=== PATIENT | female | born 2000 | race Caucasian/White ===

== ENCOUNTER 2023-03-22 11:12 | Emergency (ER) | payer BC ==
[2023-03-22 11:16] VITALS: BMI 25.8
[2023-03-22] MEDS ORDERED: ONDANSETRON 4 MG/2 ML VIAL IVPUSH ONE (12:15)
[2023-03-22] MEDS ORDERED: LOPERAMIDE HCL 2 MG CAPSULE PO ONE (12:15)
[2023-03-22] MEDS ORDERED: FAMOTIDINE 20 MG/50 ML IVPB 20 MG/50 ML MG IVPB ONE ×2 (12:15→12:21)
[2023-03-22] MEDS ORDERED: SODIUM CHLORIDE 1,000 ML IV STA (12:15)
[2023-03-22] MEDS ORDERED: ONDANSETRON 4 MG/2 ML VIAL ONE (12:21)
[2023-03-22] MEDS ORDERED: LOPERAMIDE HCL 2 MG CAPSULE ONE ×2 (12:26→12:40)
[2023-03-22 12:53] LABS: HEMATOCRIT 41.6 % (32.4-45.2); HEMOGLOBIN 14.3 GM/dL (10.7-15.3); MCH 32.9 pg (25.7-33.7); MCHC 34.3 g/dl (32.0-36.0); MEAN PLT VOLUME 9.2 fl (7.5-11.1); PLATELET COUNT 249 10^3/uL (134-434); RBC 4.34 M/mm3 (3.60-5.2); RDW 12.7 % (11.6-15.6); WHITE BLOOD COUNT 10.8 K/mm3 (4.0-10.0)
[2023-03-22 12:57] LABS: EPI CELLS 7 /uL (0-25.1); HYALINE CASTS 1 /uL (0-3.1); URINE APPEARANCE CLEAR; URINE BACTERIA 89 /uL (0-1359); URINE BILIRUBIN NEGATIVE (NEGATIVE); URINE COLOR DK YELLOW; URINE GLUCOSE (UA) NEGATIVE (NEGATIVE); URINE KETONE 3+ (NEGATIVE); URINE LEUK ESTERASE NEGATIVE (NEGATIVE); URINE NITRITE NEGATIVE (NEGATIVE); URINE PROTEIN 2+ (NEGATIVE); URINE RBC 44 /uL (0-23.9); URINE WBC 5 /uL (0-25.8)
[2023-03-22 12:58] LABS: HCG,QUALITATIVE URINE Negative
[2023-03-22 13:20] LABS: POTASSIUM 4.1 mmol/L (3.5-5.1)
[2023-03-22 13:22] LABS: BLOOD UREA NITROGEN 13.9 mg/dL (7-18); CALCIUM 8.7 mg/dL (8.5-10.1)
[2023-03-22] MEDS ORDERED: ACETAMINOPHEN 1000 MG/100 ML BAG IVPB ONE (13:22)
[2023-03-22 13:25] LABS: CREATININE 0.8 mg/dL (0.55-1.3)
[2023-03-22 13:27] LABS: BILIRUBIN,TOTAL 0.6 mg/dL (0.2-1); TOT PROT 7.5 g/dl (6.4-8.2)
[2023-03-22 13:52] LABS: ANISOCYTOSIS 0; HELMET CELLS 0; HOWELL-JOLLY BODIES 0; MACROCYTOSIS 0; OVALOCYTE 0; ROULEAU 0; SICKELED CELLS 0; TARGET CELLS 0; TEAR DROP CELLS 0; TOXIC GRANULATION 0
[2023-03-22] MEDS ORDERED: ACETAMINOPHEN 325 MG TABLET (FP) PO ONE (14:07)
[2023-03-22] MEDS ORDERED: ACETAMINOPHEN 325 MG TABLET (FP) ONE (14:26)
[2023-03-22 15:40] VITALS: BP 110/77; PULSE 78; RESP 19; TEMP 97.9
== END 2023-03-22 15:32 | disposition home or self-care (01) ==
LOC: JER 11:12
PROC: 3E033GC Introduction of Other Therapeutic Substance into Peripheral Vein, Percutaneous Approach (ICD-10-PCS; principal; 2023-03-22)
PROC: 3E033GC Introduction of Other Therapeutic Substance into Peripheral Vein, Percutaneous Approach (ICD-10-PCS; 2023-03-22)
PROC: 3E0337Z Introduction of Electrolytic and Water Balance Substance into Peripheral Vein, Percutaneous Approach (ICD-10-PCS; 2023-03-22)
DX: R11.2 Nausea with vomiting, unspecified (principal); R19.7 Diarrhea, unspecified
CPT/HCPCS: 36415; 80053; 81003; 84703; 85025; 87086; 99284-25